=== PATIENT | male | born 1990 | race Hispanic/Latino ===

== ENCOUNTER 2023-02-26 20:05 | Inpatient (IN) | payer BC, SELFPAY ==
[2023-02-26] MEDS ORDERED: fentaNYL 50 mcg/mL 1 mL Vial ONE (20:16)
[2023-02-26] MEDS ORDERED: Lidocaine 1% w/Epinephrine 1:100K 20 ML VIAL ONE (20:18)
[2023-02-26 20:24] LABS: #Basophils 0.1 thou/uL (0.0-0.2); #Eosinphils 0.3 thou/uL (0.0-0.7); #Monocytes 0.8 thou/uL (0.11-0.59); #Neutrophils 6.4 thou/uL (1.40-6.50); %Basophils 0.4 % (0.0-1.0); %Eosinophils 2.2 % (0.0-10.0); %Lymphocytes 35.8 % (21.0-51.0); %Monocytes 7.1 % (0.0-10.0); %Neutrophils 53.7 % (42.0-75.0); Hematocrit 37.2 % (42.0-52.0); Hemoglobin 12.1 g/dL (14.0-18.0); Mean Corpuscular HGB CONC 32.5 g/dL (32.0-36.0); Mean Corpuscular Hemoglobin 28.7 pg (27.0-31.0); Mean Corpuscular Volume 88.4 fl (78.0-98.0); Mean Platelet Volume 9.5 fL (7.4-10.4); Platelet Count 336 10x3/uL (130-400); RBC Distribution Width 13.3 % (11.5-14.5); Red Blood Cell (RBC) Count 4.21 mill/uL (4.70-6.10); White Blood Cell (WBC) Count 11.9 10x3/uL (4.8-10.8)
[2023-02-26 20:45] LABS: INR-International Normal Ratio 1.1; PTT 23.7 sec (22.9-36.1); Prothrombin Time 14.6 sec (12.0-14.7)
[2023-02-26 20:49] LABS: ALT (SGPT) 16 U/L (8-55); AST (SGOT) 14 U/L (5-34); Albumin 3.9 g/dL (3.5-5.0); Alkaline Phosphatase 69 U/L (40-110); Anion Gap 21 mmol/L (10-20); BUN (Urea Nitrogen) 15 mg/dL (8.9-20.6); Bilirubin, Total 0.5 mg/dL (0.2-1.2); Calc. Creatinine Clearance 0 mL/min (70-130); Carbon Dioxide 11 mmol/L (22-29); Chloride 109 mmol/L (98-107); Estimated GFR 104; Globulin 2.6 g/dL (2.4-3.5); Glucose 218 mg/dL (70-105); Potassium 3.6 mmol/L (3.5-5.1); Protein, Total 6.5 g/dL (6.0-8.3); Sodium 137 mmol/L (136-145)
[2023-02-26] MEDS ORDERED: Sodium Chloride 0.9% 100 ML ONE (20:49)
[2023-02-26] MEDS ORDERED: CEFAZOLIN 2 GM VIAL ONE (20:49)
[2023-02-26 20:51] LABS: D-Dimer Test Less than 0.27 *mcg/mL (0.27-0.43)
[2023-02-26] MEDS ORDERED: Lidocaine 1% PF 5 ML VIAL ONE (20:55)
[2023-02-26] MEDS ORDERED: Glucagon 1 MG/ML KIT IM PRN (21:17)
[2023-02-26] MEDS ORDERED: TETANUS, DIPHTHERIA TOX,ADULT (TDVAX) 0.5 ML VIAL IM ONE (21:17)
[2023-02-26] MEDS ORDERED: Dextrose 50% Abboject 50 ML SYRINGE SLOW IVP PRN (21:17)
[2023-02-26] MEDS ORDERED: Dextrose 5% in Water 1,000 ML IV PRN (21:17)
[2023-02-26] MEDS ORDERED: Acetaminophen 325 MG TAB PO PRN (21:17)
[2023-02-26] MEDS ORDERED: Ondansetron PF 4 MG/2 ML Vial ONE (21:19)
[2023-02-26] MEDS ORDERED: Morphine 4 MG/ML VIAL ONE ×2 (21:19→21:21)
[2023-02-26] MEDS ORDERED: Boostrix 0.5 ML (Tdap) VIAL (>/=7 yrs of age) ONE (22:16)
[2023-02-26 22:59] VITALS: BMI 48.8
[2023-02-26] MEDS: traMADol HCl 50 MG TAB PO PRN (23:15)
[2023-02-27] MEDS: Morphine 4 MG/ML VIAL SLOW IVP PRN ×7 (00:38→20:32)
[2023-02-27 04:43] LABS: #Monocytes 1.7 thou/uL (0.11-0.59); #Neutrophils 18.9 thou/uL (1.40-6.50); %Basophils 0.1 % (0.0-1.0); %Lymphocytes 3.3 % (21.0-51.0); %Monocytes 7.7 % (0.0-10.0); %Neutrophils 88.4 % (42.0-75.0); Hematocrit 39.4 % (42.0-52.0); Mean Corpuscular Hemoglobin 28.6 pg (27.0-31.0); Mean Corpuscular Volume 86.6 fl (78.0-98.0); Mean Platelet Volume 9.4 fL (7.4-10.4); Platelet Count 290 10x3/uL (130-400); RBC Distribution Width 13.5 % (11.5-14.5); Red Blood Cell (RBC) Count 4.55 mill/uL (4.70-6.10); White Blood Cell (WBC) Count 21.3 10x3/uL (4.8-10.8)
[2023-02-27 04:54] LABS: BUN (Urea Nitrogen) 13 mg/dL (8.9-20.6); Calc. Creatinine Clearance 262 mL/min (70-130); Calcium 8.2 mg/dL (7.8-10.44); Carbon Dioxide 20 mmol/L (22-29); Estimated GFR 121; Glucose 192 mg/dL (70-105); Sodium 135 mmol/L (136-145)
[2023-02-27 05:16] LABS: Anion Gap 12 mmol/L (10-20); Chloride 107 mmol/L (98-107)
[2023-02-27] MEDS: Enoxaparin 40 MG (0.4 mL) SYRINGE SC SCH (08:33)
[2023-02-27] MEDS: Famotidine 20 MG TAB PO SCH ×2 (08:34→20:34)
[2023-02-27] MEDS: Ondansetron PF 4 MG/2 ML Vial IVP PRN ×2 (08:44→16:24)
[2023-02-27] MEDS ORDERED: Dextrose 5% in Water 1,000 ML IV PRN (09:03)
[2023-02-27] MEDS ORDERED: Glucagon 1 MG/ML KIT IM PRN (09:03)
[2023-02-27] MEDS ORDERED: HumaLOG 300 UNITS/3 ML VIAL SC PRN (09:03)
[2023-02-27] MEDS ORDERED: Dextrose 50% Abboject 50 ML SYRINGE SLOW IVP PRN (09:03)
[2023-02-27] MEDS: traMADol HCl 50 MG TAB PO PRN (11:57)
[2023-02-27] MEDS: HumaLOG 300 UNITS/3 ML VIAL SC PRN ×2 (11:58→16:25)
[2023-02-28] MEDS: traMADol HCl 50 MG TAB PO PRN ×2 (01:01→20:54)
[2023-02-28] MEDS: HumaLOG 300 UNITS/3 ML VIAL SC PRN (06:22)
[2023-02-28] MEDS: Morphine 4 MG/ML VIAL SLOW IVP PRN ×4 (07:47→21:46)
[2023-02-28] MEDS ORDERED: Iopamidol-370 76% 500 ML MDV (1 ML CHARGE) ONE (09:25)
[2023-02-28 10:17] LABS: #Monocytes 1.8 thou/uL (0.11-0.59); #Neutrophils 18.8 thou/uL (1.40-6.50); %Basophils 0.1 % (0.0-1.0); %Lymphocytes 6.3 % (21.0-51.0); %Monocytes 8.1 % (0.0-10.0); Hematocrit 33.4 % (42.0-52.0); Hemoglobin 11.4 g/dL (14.0-18.0); Mean Corpuscular HGB CONC 34.1 g/dL (32.0-36.0); Mean Corpuscular Hemoglobin 29.2 pg (27.0-31.0); Mean Corpuscular Volume 85.4 fl (78.0-98.0); Mean Platelet Volume 9.3 fL (7.4-10.4); Platelet Count 284 10x3/uL (130-400); RBC Distribution Width 13.6 % (11.5-14.5); Red Blood Cell (RBC) Count 3.91 mill/uL (4.70-6.10); White Blood Cell (WBC) Count 22.1 10x3/uL (4.8-10.8)
[2023-02-28] MEDS: Enoxaparin 40 MG (0.4 mL) SYRINGE SC SCH (13:30)
[2023-02-28] MEDS: Famotidine 20 MG TAB PO SCH ×2 (13:34→20:54)
[2023-02-28 17:05] LABS: Hematocrit 32.6 % (42.0-52.0); Hemoglobin 10.8 g/dL (14.0-18.0); Platelet Count 275 10x3/uL (130-400)
[2023-02-28] MEDS ORDERED: Piperacillin/Tazobactam 3.375 GM in Sodium Chloride 0.9% 100 ML IVPB SCH (18:00)
[2023-02-28] MEDS: Methocarbamol 500 MG TAB PO PRN (18:22)
[2023-02-28] MEDS: Melatonin 3 MG TAB PO SCH (20:55)
[2023-02-28] MEDS: Piperacillin/Tazobactam 3.375 GM in Sodium Chloride 0.9% 100 ML IVPB SCH (23:51)
[2023-02-28] MEDS: HYDROcodone/Acetaminophen 7.5/325 mg Tablet PO PRN (23:51)
[2023-03-01 05:09] LABS: #Neutrophils 17.6 thou/uL (1.40-6.50); %Basophils 0.1 % (0.0-1.0); %Eosinophils 0.2 % (0.0-10.0); %Lymphocytes 7.9 % (21.0-51.0); %Monocytes 9.2 % (0.0-10.0); %Neutrophils 81.8 % (42.0-75.0); Hematocrit 30.6 % (42.0-52.0); Hemoglobin 10.1 g/dL (14.0-18.0); Mean Corpuscular Hemoglobin 28.7 pg (27.0-31.0); Mean Corpuscular Volume 86.9 fl (78.0-98.0); Mean Platelet Volume 9.5 fL (7.4-10.4); Platelet Count 282 10x3/uL (130-400); RBC Distribution Width 13.6 % (11.5-14.5); Red Blood Cell (RBC) Count 3.52 mill/uL (4.70-6.10); White Blood Cell (WBC) Count 21.5 10x3/uL (4.8-10.8)
[2023-03-01] MEDS: Morphine 4 MG/ML VIAL SLOW IVP PRN ×3 (08:40→16:06)
[2023-03-01] MEDS: Piperacillin/Tazobactam 3.375 GM in Sodium Chloride 0.9% 100 ML IVPB SCH ×3 (08:40→23:51)
[2023-03-01] MEDS: Enoxaparin 40 MG (0.4 mL) SYRINGE SC SCH (08:40)
[2023-03-01] MEDS: Senokot S 8.6-50 MG TAB PO SCH ×2 (08:40→21:19)
[2023-03-01] MEDS: Famotidine 20 MG TAB PO SCH ×2 (08:40→21:18)
[2023-03-01] MEDS: HYDROcodone/Acetaminophen 7.5/325 mg Tablet PO PRN (19:45)
[2023-03-01] MEDS: Methocarbamol 500 MG TAB PO PRN (20:36)
[2023-03-01] MEDS: Melatonin 3 MG TAB PO SCH (21:19)
[2023-03-02] MEDS: HYDROcodone/Acetaminophen 7.5/325 mg Tablet PO PRN ×2 (03:45→09:00)
[2023-03-02 04:47] LABS: #Basophils 0.1 thou/uL (0.0-0.2); #Eosinphils 0.1 thou/uL (0.0-0.7); #Monocytes 1.6 thou/uL (0.11-0.59); #Neutrophils 15.7 thou/uL (1.40-6.50); %Basophils 0.3 % (0.0-1.0); %Eosinophils 0.5 % (0.0-10.0); %Lymphocytes 9.7 % (21.0-51.0); %Neutrophils 80.9 % (42.0-75.0); Hemoglobin 9.9 g/dL (14.0-18.0); Mean Corpuscular Hemoglobin 28.4 pg (27.0-31.0); Mean Corpuscular Volume 86.2 fl (78.0-98.0); Mean Platelet Volume 9.8 fL (7.4-10.4); Platelet Count 345 10x3/uL (130-400); RBC Distribution Width 13.4 % (11.5-14.5); Red Blood Cell (RBC) Count 3.48 mill/uL (4.70-6.10); White Blood Cell (WBC) Count 19.4 10x3/uL (4.8-10.8)
[2023-03-02 08:44] VITALS: BP 136/84; TEMP 98.5
[2023-03-02] MEDS: Famotidine 20 MG TAB PO SCH (09:00)
[2023-03-02] MEDS: Senokot S 8.6-50 MG TAB PO SCH (09:00)
[2023-03-02] MEDS: Enoxaparin 40 MG (0.4 mL) SYRINGE SC SCH (09:01)
[2023-03-02] MEDS: Piperacillin/Tazobactam 3.375 GM in Sodium Chloride 0.9% 100 ML IVPB SCH (09:04)
== END 2023-03-02 11:08 | disposition short-term general hospital (02) | DRG 199 ==
LOC: ERS 20:05 → OBSVTOIN 21:22 → SJJU 21:22
PROVIDERS: ADMIT Surgery; ATTEND Surgery
PROC: 0W9B30Z Drainage of Left Pleural Cavity with Drainage Device, Percutaneous Approach (ICD-10-PCS; principal; 2023-02-26)
PROC: 0HQBXZZ Repair Right Upper Arm Skin, External Approach (ICD-10-PCS; 2023-02-26)
PROC: 0HQ6XZZ Repair Back Skin, External Approach (ICD-10-PCS; 2023-02-26)
DX: S27.0XXA Traumatic pneumothorax, initial encounter (principal); S27.819A Unspecified injury of esophagus (thoracic part), initial encounter; Z68.42 Body mass index [BMI] 45.0-49.9, adult; S21.212A Laceration without foreign body of left back wall of thorax without penetration into thoracic cavity, initial encounter; E66.9 Obesity, unspecified; R73.9 Hyperglycemia, unspecified; D72.829 Elevated white blood cell count, unspecified; S20.212A Contusion of left front wall of thorax, initial encounter; Z98.890 Other specified postprocedural states; Z88.2 Allergy status to sulfonamides; W45.8XXA Other foreign body or object entering through skin, initial encounter
CPT/HCPCS: 12002; 32551; 36415; 36416; 71045; 71260; 74177; 80048; 80053; 83880; 85025; 85379; 85610; 85730; 86850; 86900; 86901; 90471; 90715; 93005; 96365; 96375; G0390; J1650; J1815; J2270; J2405; J2543; J3010; J3490; Q9967